=== PATIENT | female | born 1985 | race Caucasian/White ===

== ENCOUNTER 2017-07-26 22:46 | Observation (INO) ==
--- NOTE | 2017-07-26 23:23 | Emergency Department Note ---
Disposition Clinical Impression: Abdominal pain affecting , Non-viable Disposition: Admitted As Inpatient Condition: Good Time of Disposition: 02:25 HPI - General Chief complaint: ED Abdominal Pain Stated complaint: + Preg, Abdominal Pain Time Seen by Provider: 07/26/17 22:49 Source: patient Limitations: no limitations Nursing Notes Reviewed: Yes Vital Signs Reviewed: Yes - History of Present Illness HPI Narrative: Concern about status. 32yo at unknown gestational duration presents with abdominal pain. She mentioned she was seen in this department four days ago, had an inconclusive ultrasound, and had instructions to follow-up with her [employer] office for repeat blood work and possible repeat ultrasound. She is also given return precautions , and patient states that her abdominal pain had worsened today prompted her visit to the emergency department. She does mention she had contacted her OB/ NURSE COMPANION's office, who mentioned they did not have a technician preventative medicine, so they advised for patient to return to ED. Patient denies any headache, shortness of breath, chest pain, no syncopal symptoms, passing out, palpitations. - Related Data : 4 Para: 3 Ab: 0 Previous Rx's Medication Instructions Recorded Albuterol Sulfate [Albuterol 1 puff IH QID PRN #1 puff 08/19/16 Inhaler] Amoxicillin 875 mg PO BID #28 tablet 08/19/16 OxyCODONE/APAP 5/325 [Percocet 1 each PO Q6HR PRN #4 tablet 07/05/17 5/325 MG] HYDROcodone/Acet 5/325 mg [[place] 1 tab PO Q4H PRN #10 tab 07/17/17 5-325 mg] HYDROcodone/Acet 5/325 mg [[place] 1 tab PO Q6H PRN 2 Days #8 tab 07/22/17 5-325 mg] cephALEXin [Keflex] 500 mg PO QID 3 Days #12 capsule 07/22/17 Allergies Allergy/AdvReac Type Severity Reaction Status Date / Time No Known Allergies Allergy Verified 07/26/17 23:00 All systems ED: reviewed and negative except as stated. Review of Systems: As Per HPI Constitutional: Denies: fever, chills Eyes: Denies: vision change ENT ED: Denies: throat pain Cardiovascular: Denies: palpitations Respiratory: Denies: cough, dyspnea, wheezes Gastrointestinal: Reports: abdominal pain Genitourinary: Reports: as per HPI, abnormal menses. Denies: dysuria, frequency , hematuria, dyspareunia Musculoskeletal: Denies: back pain Integumentary: Denies: rash, abrasion Neurological: Denies: headache, weakness Psychiatric: Denies: depression Endocrine: Denies: fatigue Hematological/Lymphatic: Denies: easy bleeding Allergic/Immunologic: Denies: facial swelling PMH - Social History Smoking Status: Current every day smoker Alcohol use: Reports: none Drug use: Reports: none Physical Exam - General Limitations: no limitations General appearance: alert, in no apparent distress - Head Head exam: normocephalic - Eye Eye exam: Present: EOMI - ENT ENT exam: mucous membranes moist, TM's normal bilaterally - Neck Neck exam: Present: full ROM - Chest Chest inspection: Present: normal inspection, symmetric chest wall rise - Respiratory Respiratory exam: Present: normal lung sounds bilaterally. Absent: respiratory distress - Cardiovascular Cardiovascular exam: Present: regular rate, normal rhythm - Abdominal Exam Abdominal exam: Present: soft, Non-Tender - Extremities Exam Extremities exam: Present: normal inspection, full ROM, normal capillary refill - Back Exam Back exam: Present: full ROM - Neurological Exam Neurological exam: Present: alert - Psychiatric Psychiatric exam: Present: normal affect, anxious - Skin Skin exam: Present: warm, dry, intact, normal color. Absent: rash, cyanosis, diaphoresis Course Course Narrative: Patient presents with known history of positive , as well as worsening abdominal pain, vaginal bleeding. She describes vaginal bleeding has been persisting for weeks, however she just found out she was last week. She has not had a confirmed intrauterine . Her uterine ultrasound last week was inconclusive. She was discharged to home with return precautions and rec'd to f/u with OBGYN this week. Tonight, patient returns with worsening symptoms. She has discussed with her OBs office earlier today who advised her ED visit. she was unable to f/u earlier in the week in their office because of her work schedule. Patient mentions h/o of chronic vaginal bleeding even before recent dx of prenancy. Because of this she is unsure of when her LMP started. She mentions h/o of demised twin with one of her pregnancies. Plan now is For repeat hCG Quant, and uterine ultrasound. - Reevaluation(s) Reevaluation #1: I was contacted by radiologist Dr. Woodson, who had interpreted patient's ultrasound, and mentions findings concerning for ectopic due to a new soft tissue structure on the right ovary. He does mention since this was not there 5 days ago, it seems unlikely to be ectopic, however ectopic cannot be ruled out. We will plan for OB consult. Time: 00:45 Reevaluation #2: Patient is requesting to go outside to smoke. She is wanting to pull out her IV to walk outside to smoke. She appears anxious because of this. She is requesting nicotine patch as an alternative. Time: 03:39 - Consultations Consultation #1: call center dispatcher OB service was paged and I discussed patient and us findings with family practice physician Dr. Mcmullen who is covering, who stated she will contact OB and call us back. Time: 01:30 Consultation #2: Patient was again discussed with Dr. Mcmullen, who had discussed patient with OB Dr. Espinoza. They mentioned they would like to admit patient to their service for nonviable . Plan will be for lab work, and methotrexate. However they have advised to have patient be nothing by mouth in case surgery is warranted. This was discussed with patient who is in agreement. Pt stable at this time. Time: 02:23 Vital Signs Temperature 98.7 F 07/26/17 22:56 Pulse Rate 92 07/26/17 22:56 Respiratory Rate 20 07/26/17 22:56 Blood Pressure 146/91 07/26/17 22:56 O2 Sat by Pulse Oximetry 99 07/26/17 22:56 Temperature 98.7 F 07/26/17 22:56 Pulse Rate 85 07/27/17 01:46 Respiratory Rate 16 07/27/17 01:46 Blood Pressure 134/100 07/27/17 01:46 O2 Sat by Pulse Oximetry 98 07/27/17 01:46 Oxygen Delivery Oxygen Delivery Room Air OB/Uterine Contractions - MDM Narrative Medical decision making narrative: Obstetrics Ultrasound 07/26/17 23:13 IMPRESSION: 1. No sonographic evidence for intrauterine . 2. There is a new soft tissue structure without internal flow medial to the right ovary which could represent an ectopic . 3. Normal flow in both ovaries. Critical results were called by Dr. Alonzo Woodson MD to Alber Benito on 07/27/2017 at 00:34. D/ / Alonzo Woodson MD / Alonzo Woodson MD Interpreting Provider: Alonzo Woodson MD Laboratory Tests 07/26/17 07/26/17 07/26/17 23:09 23:09 23:09 WBC 11.6 H RBC 4.64 Hgb 13.2 Hct 40.2 MCV 86.6 MCH 28.4 MCHC 32.8 RDW 13.7 Plt Count 349 MPV 10.0 Immature Gran % 0.3 Seg Neutrophils % 54.1 Lymphocytes % 37.3 Monocytes % 7.1 Eosinophils % 1.0 Basophils % 0.2 Neutrophils # 6.3 Lymphocytes # 4.3 Monocytes # 0.8 Eosinophils # 0.1 Basophils # 0.0 Beta HCG, Quant 72 H Blood Type A POSITIVE Antibody Screen NEGATIVE - Medical Records Medical records reviewed: Yes I reviewed the patient's medical records. - Lab Data Lab results reviewed: Yes I reviewed the patient's lab results. Result diagrams: 07/26/17 23:09 Lab Results 07/26/17 07/26/17 07/26/17 Range/Units 23:09 23:09 23:09 WBC 11.6 H (4.3-11.1) K/mcL RBC 4.64 (3.82-4.97) M/mcL Hgb 13.2 (11.5-15.4) g/dL Hct 40.2 (35.3-44.9) % MCV 86.6 (83.0-100.0) fL MCH 28.4 (28.0-33.3) pg MCHC 32.8 (31.6-35.5) g/dL RDW 13.7 (11.5-14.5) % Plt Count 349 (140-400) K/mcL MPV 10.0 (9.4-12.4) fL Immature Gran % 0.3 (0-4) % Seg Neutrophils % 54.1 % Lymphocytes % 37.3 % Monocytes % 7.1 % Eosinophils % 1.0 % Basophils % 0.2 % Neutrophils # 6.3 (1.6-8.9) K/mcL Lymphocytes # 4.3 (0.6-4.6) K/mcL Monocytes # 0.8 (0.0-1.3) K/mcL Eosinophils # 0.1 (0.0-0.6) K/mcL Basophils # 0.0 (0.0-0.2) K/mcL Beta HCG, Quant 72 H (Less than 5) mIU/mL Blood Type A POSITIVE Antibody Screen NEGATIVE - Radiology Data Radiology results reviewed: Yes I reviewed the patient's radiology results.
[2017-07-27 02:54] LABS: Basophils % 0.2 %; Eosinophils # 0.1 K/mcL (0.0-0.6); Hematocrit 40.2 % (35.3-44.9); Hemoglobin 13.2 g/dL (11.5-15.4); Immature Granulocytes % 0.3 % (0-4); Lymphocytes # 4.3 K/mcL (0.6-4.6); Lymphocytes % 37.3 %; Mean Corpuscular HGB Conc 32.8 g/dL (31.6-35.5); Mean Corpuscular Hemoglobin 28.4 pg (28.0-33.3); Mean Corpuscular Volume 86.6 fL (83.0-100.0); Monocytes # 0.8 K/mcL (0.0-1.3); Monocytes % 7.1 %; Neutrophils # 6.3 K/mcL (1.6-8.9); Platelet Count 349 K/mcL (140-400); Red Blood Count 4.64 M/mcL (3.82-4.97); Red Cell Distribution Width 13.7 % (11.5-14.5); Segmented Neutrophils % 54.1 %
[2017-07-27] MEDS ORDERED: Nicotine 21 MG PATCH.TD24 TD ONE (03:32)
[2017-07-27] MEDS ORDERED: Acetaminophen 325 MG TABLET PO PRN (04:19)
--- NOTE | 2017-07-27 04:26 | OB/GYN History & Physical ---
Date of Encounter: 07/27/17 Time of Encounter: 04:22 Assessment and Plan (1) Ectopic Current visit: Yes Status: Acute Plan: - cbc, cmp, beta hcg, type and screen - if no contraindications plan to start methotrexate - labetalol 200mg given for elevated BP - Tylenol 650mg q6hr for pain - NPO until choice of treatment of ectopic preg - hemoglobin stable - plan to discharge later today if surgery is not needed Qualifiers: Location of ectopic : ovarian Intrauterine status: without intrauterine Laterality: right Qualified Code(s): O00.201 - Right ovarian without intrauterine (2) Non-viable Current visit: Yes Status: Acute (3) Vaginal bleeding affecting early Current visit: Yes Status: Acute hemoglobin stable (4) Tobacco dependence Current visit: Yes Status: Acute Nicotine patch 21mg given in ED History of Present Illness Chief complaint: abdominal pain HPI: Ms. Rios is a 32 year old female at an unknown gestational age as patient has been bleeding for a couple of weeks and is unsure of LMP presented to the ED with worsening abdominal pain. Patient was previously in the ED on 07/22/17 and was found to have a beta hCG of 440 and and was scheduled to see Dr. Bronson. Patient return to the ED today as abdominal pain worsen and bleeding continued. Bleeding has been going on for the past 2 weeks not heavier than a normal period. Pain currently 5/10. Patient currently having toothe pain but denies N/V, SOB, dizziness. Past Med Surg Social Fam HX - Past Medical History Medical history: no medical history Psychiatric history: no psych history - Past Surgical History Surgical History: - Social History Smoking Status: Current every day smoker Packs per day: 1 1/2 packs Smokeless Tobacco Status: No Alcohol use: none Drug use: none Obstetrical History - Pregnancies : 4 Para: 3 Medications and Allergies Albuterol Sulfate [Albuterol Inhaler] 1 puff IH QID PRN #1 puff 08/19/16 [Rx] Amoxicillin 875 mg PO BID #28 tablet 08/19/16 [Rx] OxyCODONE/APAP 5/325 [Percocet 5/325 MG] 1 each PO Q6HR PRN #4 tablet 07/05/17 [ Rx] HYDROcodone/Acet 5/325 mg [[place] 5-325 mg] 1 tab PO Q4H PRN #10 tab 07/17/17 [Rx ] HYDROcodone/Acet 5/325 mg [[place] 5-325 mg] 1 tab PO Q6H PRN 2 Days #8 tab [Rx] cephALEXin [Keflex] 500 mg PO QID 3 Days #12 capsule 07/22/17 [Rx] 3 Allergy/AdvReac Type Severity Reaction Status Date / Time No Known Allergies Allergy Verified 07/26/17 23:00 Exam - Vital Signs Vital signs: Initial Vital Signs Temp Pulse Resp BP Pulse Ox 98.7 F 92 20 146/91 99 07/26/17 22:56 07/26/17 22:56 07/26/17 22:56 07/26/17 22:56 07/26/17 22:56 - Constitutional Constitutional: well developed, well nourished, mild distress - HEENT HEENT: EOMI - Neck Neck exam: full ROM - Lungs Respiratory exam: wheezes (left side, intermittent ) - Cardiovascular Cardiovascular exam: RRR - Abdomen Abdomen: Present: bowel sounds normal. Absent: guarding noted Abdomen detail: right lower quadrant: tenderness - Extremities Extremities exam: full ROM Results Result Diagrams: 07/26/17 23:09 Abnormal lab results WBC 11.6 K/mcL (4.3-11.1) H 07/26/17 23:09 Beta HCG, Quant 72 mIU/mL (Less than 5) H 07/26/17 23:09 All other labs normal. - VTE Reasons for not Prescribing Prophylaxis: Treatment not Indicated - Low risk for VTE
[2017-07-27 05:30] LABS: Alanine Aminotransferase 9 Units/L (7-52); Albumin 3.7 g/dL (3.5-5.7); Albumin/Globulin Ratio 1.4 (1.1-2.2); Alkaline Phosphatase 89 Units/L (34-104); Aspartate Amino Transferase 10 Units/L (13-39); BUN/Creatinine Ratio 19 (6-26); Bilirubin,Total 0.3 mg/dL (0.3-1.0); Blood Urea Nitrogen 9 mg/dL (6-20); Calcium 8.9 mg/dL (8.6-10.3); Carbon Dioxide 31 mEq/L (23-29); Chloride 103 mEq/L (98-107); Globulin 2.7 g/dL (2.4-3.5); Glucose 111 mg/dL (70-105); Osmolality,Calculated 285 (280-300); Sodium 138 mEq/L (136-145); Total Protein 6.4 g/dL (6.4-8.9); eGFR For African Americans > 60 (> 60); eGFR For Non-African Americans > 60 (> 60)
--- NOTE | 2017-07-27 10:51 | Discharge Summary ---
Date of Encounter: 07/27/17 Time of Encounter: 10:51 - Discharge Diagnosis (1) Ectopic Priority: Primary Status: Acute Comments: Patient with minimal abdominal pain at this time. Well controlled with motrin and tylenol. Patient's Beta HCG decreasing. No sign of surgical abdomen at this time. We will plan to d/c the patient home with close follow up with her OBGYN. Patient agrees to this plan and would like to be discharged at this time. Qualifiers: Location of ectopic : ovarian Intrauterine status: without intrauterine Laterality: right Qualified Code(s): O00.201 - Right ovarian without intrauterine - Discharge Medications Home Medications: Albuterol Sulfate [Albuterol Inhaler] 1 puff IH QID PRN #1 puff 08/19/16 [Rx] Acetaminophen [Tylenol] 650 mg PO Q6HR PRN tablet 07/27/17 [Rx] Allergies/Adverse Reactions: 3 Allergy/AdvReac Type Severity Reaction Status Date / Time No Known Allergies Allergy Verified 07/26/17 23:00 Data Procedures and tests throughout hospitalization: Laboratory Tests 07/27/17 05:03 Sodium 138 Potassium 3.0 L Chloride 103 Carbon Dioxide 31 H BUN 9 Creatinine 0.47 L Est GFR ( Amer) > 60 Est GFR (Non-Af Amer) > 60 BUN/Creatinine Ratio 19 Glucose 111 H Calculated Osmolality 285 Calcium 8.9 Total Bilirubin 0.3 AST 10 L ALT 9 Alkaline Phosphatase 89 Serum Total Protein 6.4 Albumin 3.7 Globulin 2.7 Albumin/Globulin Ratio 1.4 Beta HCG, Quant 63 H Labs on day of discharge: Labs from last 24 hours 07/27/17 05:03 Sodium 138 Potassium 3.0 L Chloride 103 Carbon Dioxide 31 H BUN 9 Creatinine 0.47 L Est GFR ( Amer) > 60 Est GFR (Non-Af Amer) > 60 BUN/Creatinine Ratio 19 Glucose 111 H Calculated Osmolality 285 Calcium 8.9 Total Bilirubin 0.3 AST 10 L ALT 9 Alkaline Phosphatase 89 Serum Total Protein 6.4 Albumin 3.7 Globulin 2.7 Albumin/Globulin Ratio 1.4 Beta HCG, Quant 63 H Date of admission: 07/27/17 02:51 Primary care physician: PCP NONE Discharging clinician: Shaniqua Jasso Anticipated date of discharge: 07/27/17 - Patient Status Disposition: Home, Self-Care Condition: Good Functional capacity at discharge: independent ambulation Overall status at discharge: patient is progressing back to baseline - Discharge Instructions Instructions: Ectopic (DC) Follow Up With: Ezequiel Bronson MD [Non-Partnered Physician] - (Please call OBGYN to schedule follow-up appointment) - Diet and Activity Activity: increase activity as tolerated Diet: advance to your usual diet Hospital Course [employer] Hospital course: Ms. Rios is a 32 year old female at an unknown gestational age as patient has been bleeding for a couple of weeks and is unsure of LMP presented to the ED with worsening abdominal pain. Patient was previously in the ED on 07/22/17 and was found to have a beta hCG of 440 and and was scheduled to see Dr. Bronson. Patient return to the ED today as abdominal pain worsen and bleeding continued. Bleeding has been going on for the past 2 weeks not heavier than a normal period. Pain currently 5/10. Patient currently having toothe pain but denies N/V, SOB, dizziness. Ultrasound completed and showed 1. No sonographic evidence for intrauterine . 2. There is a new soft tissue structure without internal flow medial to the right ovary which could represent an ectopic . 3. Normal flow in both ovaries. Patient was admitted for observation. Patient's beta HCG has decreased to 63 this morning. Time Attestation: Total time spent providing and/or coordinating discharge services: Exam - Constitutional Vitals: Temp Pulse Resp BP Pulse Ox 98.7 F 85 18 147/89 98 07/26/17 22:56 07/27/17 01:46 07/27/17 03:39 07/27/17 05:05 07/27/17 01:46 General appearance IM: A&O X 3, no acute distress - Respiratory Respiratory exam: Present: CTAB - Cardiovascular Cardiovascular exam IM: Present: RRR - GI/Abdominal GI/Abdominal exam IM: soft Additional comments: Mild tenderness to RLQ and suprapubic area, no rebound, guarding, or signs of a surgical abdomen. Abdomen is soft - Extremities Exam Extremities exam IM: Present: normal capillary refill, normal inspection - Neurological Exam Neurological exam: alert, oriented X3, no focal deficits - VTE Reasons for not Prescribing Prophylaxis: Treatment not Indicated - Low risk for VTE - Attending Attestation I have seen this patient in addition to the resident physician and I agree with the plan as outlined. Discharge home with strict return precautions. Pt to follow-up within the next few days with her primary OBGYN. POC discussed with Dr. Scruggs.
[2017-07-27 13:38] VITALS: BP 140/82
== END 2017-07-27 12:00 | disposition home or self-care (01) | DRG 566 ==
LOC: EMEROO 22:46 → 1NENUPED 07-27 02:51 → INTOOBSV 07-27 02:51 → 1NENUPED 07-27 03:41
PROVIDERS: ADMIT Advanced Practice Midwife; ATTEND Obstetrics & Gynecology

== ENCOUNTER 2020-05-10 14:17 | Inpatient (IN) ==
[2020-05-10] MEDS ORDERED: 0.9 % Sodium Chloride 1,000 ML IVC ONE ×2 (14:37→15:24)
[2020-05-10] MEDS ORDERED: Ondansetron 4 MG/2 ML VIAL IVP ONE (14:39)
[2020-05-10 15:09] LABS: Basophils % 0.2 %; Eosinophils # 0.1 K/mcL (0.0-0.6); Eosinophils % 0.6 %; Hematocrit 40.8 % (35.3-44.9); Hemoglobin 13.9 g/dL (11.5-15.4); Immature Granulocytes % 0.8 % (0-4); Lymphocytes # 4.4 K/mcL (0.6-4.6); Lymphocytes % 19.8 %; Mean Corpuscular HGB Conc 34.1 g/dL (31.6-35.5); Mean Corpuscular Hemoglobin 34.2 pg (28.0-33.3); Mean Corpuscular Volume 100.5 fL (83.0-100.0); Monocytes # 0.7 K/mcL (0.0-1.3); Monocytes % 3.2 %; Neutrophils # 16.6 K/mcL (1.6-8.9); Nucleated Red Blood Cells 0.1 /100 WBC (0); Platelet Count 442 K/mcL (140-400); Red Blood Count 4.06 M/mcL (3.82-4.97); Segmented Neutrophils % 75.4 %
[2020-05-10 15:26] LABS: Alanine Aminotransferase 16 Units/L (7-52); Albumin 3.3 g/dL (3.5-5.7); Alkaline Phosphatase 207 Units/L (34-104); Amylase 55 Units/L (29-103); Aspartate Amino Transferase 30 Units/L (13-39); BUN/Creatinine Ratio 22 (6-26); Bilirubin,Direct 0.3 mg/dL (0.0-0.2); Bilirubin,Indirect 0.6 mg/dL (0.0-1.0); Bilirubin,Total 0.9 mg/dL (0.3-1.0); Blood Urea Nitrogen 12 mg/dL (6-20); Calcium 9.1 mg/dL (8.6-10.3); Carbon Dioxide 26 mEq/L (23-29); Chloride 83 mEq/L (98-107); Globulin 3.4 g/dL (2.4-3.5); Glucose 139 mg/dL (70-105); Lipase 8 Units/L (11-82); Osmolality,Calculated 266 (280-300); Potassium 2.7 mEq/L (3.5-5.1); Sodium 127 mEq/L (136-145); Total Protein 6.7 g/dL (6.4-8.9); Troponin I < 0.03 ng/mL (< 0.04); eGFR For African Americans > 60 (> 60); eGFR For Non-African Americans > 60 (> 60)
[2020-05-10 15:48] LABS: Hypochromasia Present (Not Present); Stomatocytes 1+ (Not Present)
[2020-05-10 15:50] LABS: Adenovirus Not Detected (Not Detect); Bordetella Pertussis Not Detected (Not Detect); Chlamydophila pneumoniae Not Detected (Not Detect); Coronavirus 229E Not Detected (Not Detect); Coronavirus HKU1 Not Detected (Not Detect); Coronavirus NL63 Not Detected (Not Detect); Coronavirus OC43 Not Detected (Not Detect); Human Metapneumovirus Not Detected (Not Detect); Human Rhinovirus/Enterovirus Not Detected (Not Detect); Influenza A Subtype 2009 H1 Not Detected (Not Detect); Influenza B Not Detected (Not Detect); Mycoplasma pneumoniae Not Detected (Not Detect); Parainfluenza Virus 1 Not Detected (Not Detect); Parainfluenza Virus 2 Not Detected (Not Detect); Parainfluenza Virus 3 Not Detected (Not Detect); Parainfluenza Virus 4 Not Detected (Not Detect); Respiratory Syncytial Virus Not Detected (Not Detect); SARS-CoV-2 Not Detected (Not Detect)
[2020-05-10] MEDS ORDERED: Isovue-370 500 ML BOTTLE IVP ONE (17:04)
[2020-05-10] MEDS ORDERED: Vancomycin 1,500 MG/265 ML IV.SOLN IVPB ONE (17:25)
[2020-05-10] MEDS ORDERED: Cefepime HCl 2,000 MG in 0.9 % Sodium Chloride Mini Bag 100 ML IVPB ONE (17:30)
[2020-05-10 19:08] LABS: Bacteria,Urine Few per hpf (None-Few); Bilirubin,Urine Negative (Negative); Blood,Urine Negative (Negative); Clarity,Urine Clear (Clear); Color,Urine Yellow (Yellow); Glucose,Urine (UA) Normal (Normal); Ketones,Urine Trace mg/dL (Negative); Leukocyte Esterase,Urine Moderate (Negative); Mucus,Urine Few per lpf (None-Few); Nitrite,Urine Negative (Negative); PH,Urine 6.5 pH Units (5.0-8.0); Protein,Urine 30 mg/dL (Neg-Trace); Specific Gravity,Urine > 1.030 (1.010-1.025); Squamous Epithelial Cell,Urine Few per hpf (None-Few)
[2020-05-10] MEDS ORDERED: Potassium Chloride 40 MEQ, Lidocaine 1% 2 ML in 0.9 % Sodium Chloride 500 ML IVPB ONE (19:16)
[2020-05-10] MEDS ORDERED: Naloxone 0.4 MG/ML INJ IVP PRN (21:12)
[2020-05-10] MEDS ORDERED: Acetaminophen 325 MG TABLET PO PRN (21:12)
[2020-05-10 21:58] LABS: Amphetamine Screen,Urine Negative ng/mL (Cutoff=1000); Barbiturate Screen,Urine Negative ng/mL (Cutoff=200); Benzodiazepines Screen,Urine Negative ng/mL (Cutoff=200); Cannabinoid Screen,Urine Negative ng/mL (Cutoff = 50); Cocaine Screen,Urine Negative ng/mL (Cutoff= 300); Opiate Screen,Urine Positive ng/mL (Cutoff=300); Phencyclidine Screen,Urine Negative ng/mL (Cutoff=25)
[2020-05-10] MEDS: 0.9 % Sodium Chloride 1,000 ML IVC SCH (22:11)
[2020-05-10 23:27] LABS: BUN/Creatinine Ratio 22 (6-26); Blood Urea Nitrogen 10 mg/dL (6-20); Calcium 7.9 mg/dL (8.6-10.3); Carbon Dioxide 23 mEq/L (23-29); Chloride 93 mEq/L (98-107); Glucose 115 mg/dL (70-105); Osmolality,Calculated 270 (280-300); Potassium 3.3 mEq/L (3.5-5.1); Sodium 130 mEq/L (136-145); eGFR For African Americans > 60 (> 60); eGFR For Non-African Americans > 60 (> 60)
[2020-05-11] MEDS: Vancomycin 1,250 MG/262.5 ML IV.SOLN IVPB SCH ×3 (05:39→21:12)
[2020-05-11] MEDS: *HR* Enoxaparin 40 MG/0.4 ML SYRINGE SQ SCH (05:39)
[2020-05-11] MEDS: Cefepime HCl 2,000 MG in Water for inj. (sterile) 20 ML IVP SCH ×3 (05:40→21:15)
[2020-05-11] MEDS: Ondansetron 4 MG/2 ML VIAL IVP PRN ×2 (05:46→17:16)
[2020-05-11 06:35] LABS: Basophils % 0.1 %; Eosinophils # 0.1 K/mcL (0.0-0.6); Eosinophils % 0.6 %; Hematocrit 38.3 % (35.3-44.9); Hemoglobin 12.7 g/dL (11.5-15.4); Immature Granulocytes % 0.5 % (0-4); Lymphocytes # 3.6 K/mcL (0.6-4.6); Lymphocytes % 17.8 %; Mean Corpuscular HGB Conc 33.2 g/dL (31.6-35.5); Mean Corpuscular Hemoglobin 33.9 pg (28.0-33.3); Mean Corpuscular Volume 102.1 fL (83.0-100.0); Mean Platelet Volume 9.8 fL (9.4-12.4); Monocytes # 0.7 K/mcL (0.0-1.3); Monocytes % 3.5 %; Neutrophils # 15.7 K/mcL (1.6-8.9); Platelet Count 422 K/mcL (140-400); Red Blood Count 3.75 M/mcL (3.82-4.97); Red Cell Distribution Width 15.1 % (11.5-14.5); Segmented Neutrophils % 77.5 %; White Blood Count 20.3 K/mcL (4.3-11.1)
[2020-05-11 06:54] LABS: BUN/Creatinine Ratio 20 (6-26); Blood Urea Nitrogen 9 mg/dL (6-20); Carbon Dioxide 27 mEq/L (23-29); Chloride 96 mEq/L (98-107); Glucose 120 mg/dL (70-105); Magnesium 1.6 mg/dL (1.6-2.6); Osmolality,Calculated 274 (280-300); Sodium 132 mEq/L (136-145); eGFR For African Americans > 60 (> 60); eGFR For Non-African Americans > 60 (> 60)
[2020-05-11] MEDS: 0.9 % Sodium Chloride 1,000 ML IVC SCH ×2 (10:39→20:26)
[2020-05-11] MEDS ORDERED: 0.9 % Sodium Chloride 1,000 ML IVC SCH (11:25)
[2020-05-11] MEDS ORDERED: 0.9 % Sodium Chloride 1,000 ML IV ONE (18:03)
[2020-05-12] MEDS: Magic Mouthwash 10 ML UD Cup PO SCH ×4 (02:31→17:17)
[2020-05-12] MEDS: 0.9 % Sodium Chloride 1,000 ML IVC SCH ×4 (04:14→23:40)
[2020-05-12 04:40] LABS: Basophils % 0.2 %; Eosinophils # 0.2 K/mcL (0.0-0.6); Eosinophils % 0.8 %; Hematocrit 34.7 % (35.3-44.9); Hemoglobin 11.5 g/dL (11.5-15.4); Immature Granulocytes % 0.6 % (0-4); Lymphocytes # 3.8 K/mcL (0.6-4.6); Lymphocytes % 19.1 %; Mean Corpuscular HGB Conc 33.1 g/dL (31.6-35.5); Mean Corpuscular Hemoglobin 34.6 pg (28.0-33.3); Mean Corpuscular Volume 104.5 fL (83.0-100.0); Mean Platelet Volume 9.6 fL (9.4-12.4); Monocytes # 0.6 K/mcL (0.0-1.3); Monocytes % 3.2 %; Platelet Count 383 K/mcL (140-400); Red Blood Count 3.32 M/mcL (3.82-4.97); Red Cell Distribution Width 15.3 % (11.5-14.5); Segmented Neutrophils % 76.1 %; White Blood Count 19.7 K/mcL (4.3-11.1)
[2020-05-12 04:59] LABS: Alanine Aminotransferase 13 Units/L (7-52); Albumin 2.8 g/dL (3.5-5.7); Alkaline Phosphatase 141 Units/L (34-104); Aspartate Amino Transferase 20 Units/L (13-39); BUN/Creatinine Ratio 18 (6-26); Bilirubin,Total 0.6 mg/dL (0.3-1.0); Blood Urea Nitrogen 7 mg/dL (6-20); Calcium 7.8 mg/dL (8.6-10.3); Carbon Dioxide 22 mEq/L (23-29); Chloride 102 mEq/L (98-107); Globulin 2.7 g/dL (2.4-3.5); Glucose 110 mg/dL (70-105); Magnesium 1.4 mg/dL (1.6-2.6); Osmolality,Calculated 279 (280-300); Phosphorous 1.8 mg/dL (2.7-4.5); Potassium 3.3 mEq/L (3.5-5.1); Sodium 135 mEq/L (136-145); Total Protein 5.5 g/dL (6.4-8.9); eGFR For African Americans > 60 (> 60); eGFR For Non-African Americans > 60 (> 60)
[2020-05-12] MEDS: *HR* Enoxaparin 40 MG/0.4 ML SYRINGE SQ SCH (05:47)
[2020-05-12] MEDS ORDERED: Magic Mouthwash 10 ML UD Cup PO SCH (07:30)
[2020-05-12] MEDS ORDERED: Potassium Phosphate 44 MEQ in 0.9 % Sodium Chloride 250 ML IVPB ONE (08:12)
[2020-05-12] MEDS ORDERED: Potassium Chloride 40 MEQ, Lidocaine 1% 2 ML in 0.9 % Sodium Chloride 500 ML IVPB ONE (08:12)
[2020-05-12] MEDS: Cefepime HCl 2,000 MG in Water for inj. (sterile) 20 ML IVP SCH ×2 (09:49→20:24)
[2020-05-12] MEDS: Vancomycin 1,250 MG/262.5 ML IV.SOLN IVPB SCH (10:15)
[2020-05-12] MEDS: Nystatin SUSP 5 ML UD.LIQ PO SCH (20:26)
[2020-05-13] MEDS: Ondansetron 4 MG/2 ML VIAL IVP PRN (01:43)
[2020-05-13 04:30] LABS: Basophils % 0.2 %; Eosinophils # 0.3 K/mcL (0.0-0.6); Eosinophils % 1.4 %; Hematocrit 33.7 % (35.3-44.9); Hemoglobin 10.8 g/dL (11.5-15.4); Immature Granulocytes % 0.5 % (0-4); Lymphocytes # 3.1 K/mcL (0.6-4.6); Lymphocytes % 16.7 %; Mean Corpuscular Hemoglobin 33.9 pg (28.0-33.3); Mean Corpuscular Volume 105.6 fL (83.0-100.0); Mean Platelet Volume 9.6 fL (9.4-12.4); Monocytes # 0.5 K/mcL (0.0-1.3); Monocytes % 2.7 %; Neutrophils # 14.6 K/mcL (1.6-8.9); Platelet Count 362 K/mcL (140-400); Red Blood Count 3.19 M/mcL (3.82-4.97); Red Cell Distribution Width 15.4 % (11.5-14.5); Segmented Neutrophils % 78.5 %; White Blood Count 18.6 K/mcL (4.3-11.1)
[2020-05-13 04:50] LABS: Alanine Aminotransferase 14 Units/L (7-52); Albumin 2.7 g/dL (3.5-5.7); Alkaline Phosphatase 129 Units/L (34-104); Aspartate Amino Transferase 19 Units/L (13-39); BUN/Creatinine Ratio 15 (6-26); Bilirubin,Total 0.5 mg/dL (0.3-1.0); Blood Urea Nitrogen 5 mg/dL (6-20); Calcium 7.7 mg/dL (8.6-10.3); Carbon Dioxide 21 mEq/L (23-29); Chloride 105 mEq/L (98-107); Globulin 2.7 g/dL (2.4-3.5); Glucose 110 mg/dL (70-105); Magnesium 1.6 mg/dL (1.6-2.6); Osmolality,Calculated 276 (280-300); Phosphorous 2.4 mg/dL (2.7-4.5); Potassium 3.9 mEq/L (3.5-5.1); Sodium 134 mEq/L (136-145); Total Protein 5.4 g/dL (6.4-8.9); eGFR For African Americans > 60 (> 60); eGFR For Non-African Americans > 60 (> 60)
[2020-05-13] MEDS: 0.9 % Sodium Chloride 1,000 ML IVC SCH ×3 (05:10→22:06)
[2020-05-13] MEDS: *HR* Enoxaparin 40 MG/0.4 ML SYRINGE SQ SCH (05:10)
[2020-05-13] MEDS: Cefepime HCl 2,000 MG in Water for inj. (sterile) 20 ML IVP SCH ×2 (07:57→20:05)
[2020-05-13] MEDS: Magic Mouthwash 10 ML UD Cup PO SCH ×3 (07:58→16:30)
[2020-05-13] MEDS: Nystatin SUSP 5 ML UD.LIQ PO SCH ×4 (09:11→20:05)
[2020-05-13] MEDS: Doxycycline 100 MG CAPSULE PO SCH ×2 (09:11→20:05)
[2020-05-13] MEDS: Albumin 25% 25gram/100mL 25 GM/100 ML IV.SOLN IVPB SCH ×2 (09:42→16:30)
[2020-05-13 16:50] LABS: Red Blood Cell,CSF < 2000 RBC/mcL
[2020-05-13 17:19] LABS: Glucose,CSF 68 mg/dL (40-70)
[2020-05-13 17:21] LABS: Total Protein,CSF 39 mg/dL (15-45)
[2020-05-13] MEDS: Nicotine 14 MG PATCH.TD24 TD SCH (17:26)
[2020-05-13 18:03] LABS: Appearance,CSF Clear (Clear)
[2020-05-13 18:39] LABS: Thyroid Stimulating Hormone 3.093 mcIU/mL (0.340-5.600)
[2020-05-13 19:15] LABS: Folate < 1.0 ng/mL (3.0-16.0); Vitamin B12 247 pg/mL (250-1100)
[2020-05-13] MEDS ORDERED: Folic Acid 1 MG in 0.9 % Sodium Chloride 50 ML IVPB ONE (20:16)
[2020-05-13] MEDS ORDERED: Folic Acid 1 MG TABLET PO SCH (21:00)
[2020-05-13] MEDS ORDERED: Cyanocobalamin (B-12) 1,000 MCG TABLET PO SCH (21:00)
[2020-05-13] MEDS: Cyanocobalamin (B-12) 1,000 MCG/ML VIAL IM SCH (21:59)
[2020-05-14] MEDS: Albumin 25% 25gram/100mL 25 GM/100 ML IV.SOLN IVPB SCH (00:58)
[2020-05-14] MEDS: 0.9 % Sodium Chloride 1,000 ML IVC SCH (03:20)
[2020-05-14] MEDS: *HR* Enoxaparin 40 MG/0.4 ML SYRINGE SQ SCH (05:32)
[2020-05-14] MEDS ORDERED: Folic Acid 1 MG in 0.9 % Sodium Chloride 50 ML IVPB STA (07:06)
[2020-05-14 07:24] VITALS: BP 138/93
[2020-05-14] MEDS: Doxycycline 100 MG CAPSULE PO SCH (07:59)
[2020-05-14] MEDS: Cefepime HCl 2,000 MG in Water for inj. (sterile) 20 ML IVP SCH (08:00)
[2020-05-14] MEDS: Cyanocobalamin (B-12) 1,000 MCG/ML VIAL IM SCH (08:00)
[2020-05-14] MEDS: Magic Mouthwash 10 ML UD Cup PO SCH ×2 (08:00→11:38)
[2020-05-14] MEDS: Nicotine 14 MG PATCH.TD24 TD SCH (08:01)
[2020-05-14] MEDS: Nystatin SUSP 5 ML UD.LIQ PO SCH ×2 (08:01→12:59)
[2020-05-14] MEDS ORDERED: Furosemide 40 MG/4 ML VIAL IVP ONE (08:14)
[2020-05-14 10:41] LABS: Alanine Aminotransferase 14 Units/L (7-52); Albumin 3.6 g/dL (3.5-5.7); Albumin/Globulin Ratio 1.4 (1.1-2.2); Alkaline Phosphatase 113 Units/L (34-104); Aspartate Amino Transferase 27 Units/L (13-39); BUN/Creatinine Ratio 14 (6-26); Bilirubin,Total 0.8 mg/dL (0.3-1.0); Blood Urea Nitrogen 5 mg/dL (6-20); Calcium 8.7 mg/dL (8.6-10.3); Carbon Dioxide 19 mEq/L (23-29); Chloride 103 mEq/L (98-107); Globulin 2.5 g/dL (2.4-3.5); Glucose 102 mg/dL (70-105); Osmolality,Calculated 273 (280-300); Potassium 4.6 mEq/L (3.5-5.1); Sodium 133 mEq/L (136-145); Total Protein 6.1 g/dL (6.4-8.9); eGFR For African Americans > 60 (> 60); eGFR For Non-African Americans > 60 (> 60)
== END 2020-05-14 13:04 | disposition home or self-care (01) | DRG 720 ==
LOC: EMEROOARM 14:17 → 3ANU 14:17 → SUATTDRO 05-11 18:37 → 3ANU 05-13 16:40
PROVIDERS: ADMIT Student in an Organized Health Care Education/Training Program; ATTEND Internal Medicine

== ENCOUNTER 2020-05-19 22:56 | Inpatient (IN) ==
[2020-05-19 23:44] LABS: Basophils % 0.3 %; Eosinophils # 0.1 K/mcL (0.0-0.6); Eosinophils % 0.9 %; Hematocrit 35.3 % (35.3-44.9); Hemoglobin 11.4 g/dL (11.5-15.4); Immature Granulocytes % 0.6 % (0-4); Lymphocytes # 4.3 K/mcL (0.6-4.6); Lymphocytes % 28.6 %; Mean Corpuscular HGB Conc 32.3 g/dL (31.6-35.5); Mean Corpuscular Hemoglobin 33.9 pg (28.0-33.3); Mean Corpuscular Volume 105.1 fL (83.0-100.0); Mean Platelet Volume 9.7 fL (9.4-12.4); Monocytes % 6.4 %; Neutrophils # 9.4 K/mcL (1.6-8.9); Platelet Count 608 K/mcL (140-400); Red Blood Count 3.36 M/mcL (3.82-4.97); Red Cell Distribution Width 15.1 % (11.5-14.5); Segmented Neutrophils % 63.2 %; White Blood Count 14.9 K/mcL (4.3-11.1)
[2020-05-20 00:03] LABS: Alanine Aminotransferase 30 Units/L (7-52); Albumin 3.3 g/dL (3.5-5.7); Alkaline Phosphatase 218 Units/L (34-104); Aspartate Amino Transferase 70 Units/L (13-39); BUN/Creatinine Ratio 24 (6-26); Bilirubin,Direct 0.2 mg/dL (0.0-0.2); Bilirubin,Indirect 0.5 mg/dL (0.0-1.0); Bilirubin,Total 0.7 mg/dL (0.3-1.0); Blood Urea Nitrogen 10 mg/dL (6-20); Calcium 8.8 mg/dL (8.6-10.3); Carbon Dioxide 26 mEq/L (23-29); Chloride 97 mEq/L (98-107); Creatine Kinase 22 Units/L (30-223); Globulin 3.3 g/dL (2.4-3.5); Glucose 136 mg/dL (70-105); Lipase 6 Units/L (11-82); Osmolality,Calculated 287 (280-300); Potassium 2.6 mEq/L (3.5-5.1); Sodium 138 mEq/L (136-145); Total Protein 6.6 g/dL (6.4-8.9); eGFR For African Americans > 60 (> 60); eGFR For Non-African Americans > 60 (> 60)
[2020-05-20 00:04] LABS: Troponin I < 0.03 ng/mL (< 0.04)
[2020-05-20 00:05] LABS: Platelet Estimate Increased (Normal); Polychromasia 1+ (Not Present); Reactive Lymphocytes Present (Not Present)
[2020-05-20 00:08] LABS: Bilirubin,Urine Small (Negative); Blood,Urine Negative (Negative); Clarity,Urine Turbid (Clear); Color,Urine Dark-Yellow (Yellow); Glucose,Urine (UA) Normal (Normal); Hyaline Casts,Urine Many per lpf (None Seen); Ketones,Urine Trace mg/dL (Negative); Leukocyte Esterase,Urine Negative (Negative); Mucus,Urine Many per lpf (None-Few); Nitrite,Urine Negative (Negative); Protein,Urine 100 mg/dL (Neg-Trace); Specific Gravity,Urine > 1.030 (1.010-1.025); Squamous Epithelial Cell,Urine Few per hpf (None-Few)
[2020-05-20 00:29] LABS: Amphetamine Screen,Urine Negative ng/mL (Cutoff=1000); Barbiturate Screen,Urine Negative ng/mL (Cutoff=200); Benzodiazepines Screen,Urine Negative ng/mL (Cutoff=200); Cannabinoid Screen,Urine Negative ng/mL (Cutoff = 50); Cocaine Screen,Urine Negative ng/mL (Cutoff= 300); Opiate Screen,Urine Positive ng/mL (Cutoff=300); Phencyclidine Screen,Urine Negative ng/mL (Cutoff=25)
[2020-05-20 00:50] LABS: Adenovirus Not Detected (Not Detect); Bordetella Pertussis Not Detected (Not Detect); Chlamydophila pneumoniae Not Detected (Not Detect); Coronavirus 229E Not Detected (Not Detect); Coronavirus HKU1 Not Detected (Not Detect); Coronavirus NL63 Not Detected (Not Detect); Coronavirus OC43 Not Detected (Not Detect); Human Metapneumovirus Not Detected (Not Detect); Human Rhinovirus/Enterovirus Not Detected (Not Detect); Influenza A Subtype 2009 H1 Not Detected (Not Detect); Influenza B Not Detected (Not Detect); Mycoplasma pneumoniae Not Detected (Not Detect); Parainfluenza Virus 1 Not Detected (Not Detect); Parainfluenza Virus 2 Not Detected (Not Detect); Parainfluenza Virus 3 Not Detected (Not Detect); Parainfluenza Virus 4 Not Detected (Not Detect); Respiratory Syncytial Virus Not Detected (Not Detect); SARS-CoV-2 Not Detected (Not Detect)
[2020-05-20] MEDS ORDERED: POTASSIUM CHLORIDE IN 0.9%NACL 40 MEQ/1,000 ML IV.SOLN IV STA (01:02)
[2020-05-20] MEDS ORDERED: Azithromycin 500 MG in 0.9 % Sodium Chloride 250 ML IVPB ONE (01:28)
[2020-05-20] MEDS ORDERED: Piperacillin/Tazobactam 3.375 GM in 0.9 % Sodium Chloride Mini Bag 100 ML IVPB ONE (01:28)
[2020-05-20] MEDS ORDERED: Vancomycin 1,500 MG/265 ML IV.SOLN IVPB ONE (01:45)
[2020-05-20] MEDS ORDERED: Naloxone 0.4 MG/ML INJ IVP PRN (03:13)
[2020-05-20] MEDS ORDERED: Ringers Solution, Lactated 1,000 ML IVC SCH (03:15)
[2020-05-20 03:51] LABS: Hemoglobin 10.2 g/dL (11.5-15.4); Mean Corpuscular HGB Conc 32.9 g/dL (31.6-35.5); Mean Corpuscular Hemoglobin 34.5 pg (28.0-33.3); Mean Corpuscular Volume 104.7 fL (83.0-100.0); Mean Platelet Volume 9.6 fL (9.4-12.4); Platelet Count 575 K/mcL (140-400); Red Blood Count 2.96 M/mcL (3.82-4.97); Red Cell Distribution Width 15.1 % (11.5-14.5); White Blood Count 15.4 K/mcL (4.3-11.1)
[2020-05-20 04:08] LABS: BUN/Creatinine Ratio 29 (6-26); Blood Urea Nitrogen 11 mg/dL (6-20); Calcium 8.6 mg/dL (8.6-10.3); Carbon Dioxide 29 mEq/L (23-29); Chloride 98 mEq/L (98-107); Glucose 110 mg/dL (70-105); Osmolality,Calculated 288 (280-300); Potassium 2.8 mEq/L (3.5-5.1); Sodium 139 mEq/L (136-145); eGFR For African Americans > 60 (> 60); eGFR For Non-African Americans > 60 (> 60)
[2020-05-20 04:14] LABS: Procalcitonin 0.15 ng/mL (0.00-0.15)
[2020-05-20] MEDS ORDERED: Potassium Chloride Elixir 20 MEQ/15 ML UDC PO ONE ×2 (06:00→17:50)
[2020-05-20 07:19] LABS: Folate 8.1 ng/mL (3.0-16.0)
[2020-05-20] MEDS: Cyanocobalamin (B-12) 1,000 MCG TABLET PO SCH (07:55)
[2020-05-20] MEDS ORDERED: Gadolinium Contrast Agent (WT Based) IV PRN (08:49)
[2020-05-20] MEDS: Piperacillin/Tazobactam 3.375 GM in 0.9 % Sodium Chloride Mini Bag 100 ML IVPB SCH ×2 (11:15→15:35)
[2020-05-20] MEDS ORDERED: Furosemide 40 MG/4 ML VIAL IVP ONE (12:35)
[2020-05-20] MEDS ORDERED: Albumin 25% 25gram/100mL 25 GM/100 ML IV.SOLN IVPB ONE (12:35)
[2020-05-20 15:50] LABS: BUN/Creatinine Ratio 21 (6-26); Blood Urea Nitrogen 9 mg/dL (6-20); Calcium 8.7 mg/dL (8.6-10.3); Carbon Dioxide 28 mEq/L (23-29); Chloride 101 mEq/L (98-107); Glucose 112 mg/dL (70-105); Magnesium 1.4 mg/dL (1.6-2.6); Osmolality,Calculated 289 (280-300); Potassium 3.2 mEq/L (3.5-5.1); Sodium 140 mEq/L (136-145); eGFR For African Americans > 60 (> 60); eGFR For Non-African Americans > 60 (> 60)
[2020-05-20] MEDS: 0.9 % Sodium Chloride 1,000 ML IVC SCH ×2 (18:04→21:27)
[2020-05-20] MEDS ORDERED: 0.9 % Sodium Chloride 1,000 ML IVC ONE (18:08)
[2020-05-20] MEDS: Folic Acid 1 MG TABLET PO SCH (19:41)
[2020-05-21] MEDS: Piperacillin/Tazobactam 3.375 GM in 0.9 % Sodium Chloride Mini Bag 100 ML IVPB SCH ×3 (00:19→17:18)
[2020-05-21 02:45] LABS: Basophils % 0.3 %; Eosinophils # 0.1 K/mcL (0.0-0.6); Eosinophils % 0.8 %; Hematocrit 30.1 % (35.3-44.9); Hemoglobin 9.8 g/dL (11.5-15.4); Immature Granulocytes % 0.4 % (0-4); Lymphocytes # 3.4 K/mcL (0.6-4.6); Lymphocytes % 28.9 %; Mean Corpuscular HGB Conc 32.6 g/dL (31.6-35.5); Mean Corpuscular Hemoglobin 34.5 pg (28.0-33.3); Mean Platelet Volume 9.7 fL (9.4-12.4); Monocytes # 0.8 K/mcL (0.0-1.3); Monocytes % 6.9 %; Neutrophils # 7.3 K/mcL (1.6-8.9); Platelet Count 605 K/mcL (140-400); Red Blood Count 2.84 M/mcL (3.82-4.97); Red Cell Distribution Width 14.7 % (11.5-14.5); Segmented Neutrophils % 62.7 %; White Blood Count 11.7 K/mcL (4.3-11.1)
[2020-05-21 03:02] LABS: BUN/Creatinine Ratio 18 (6-26); Blood Urea Nitrogen 7 mg/dL (6-20); Calcium 8.2 mg/dL (8.6-10.3); Carbon Dioxide 27 mEq/L (23-29); Chloride 102 mEq/L (98-107); Glucose 92 mg/dL (70-105); Magnesium 1.7 mg/dL (1.6-2.6); Osmolality,Calculated 288 (280-300); Phosphorous 3.3 mg/dL (2.7-4.5); Potassium 3.1 mEq/L (3.5-5.1); Sodium 140 mEq/L (136-145); eGFR For African Americans > 60 (> 60); eGFR For Non-African Americans > 60 (> 60)
[2020-05-21] MEDS: 0.9 % Sodium Chloride 1,000 ML IVC SCH (05:32)
[2020-05-21] MEDS ORDERED: Potassium Chloride Elixir 20 MEQ/15 ML UDC PO ONE (09:33)
[2020-05-21] MEDS: Cyanocobalamin (B-12) 1,000 MCG TABLET PO SCH (09:42)
[2020-05-21] MEDS: Thiamine (B-1) 100 MG TABLET PO SCH (09:56)
[2020-05-21] MEDS ORDERED: 0.9 % Sodium Chloride 500 ML IVC ONE (12:37)
[2020-05-21] MEDS: Doxycycline 100 MG in 0.9 % Sodium Chloride Mini Bag 100 ML IVPB SCH (12:58)
[2020-05-21 18:07] LABS: Albumin 3.3 g/dL (3.5-5.7); Albumin/Globulin Ratio 1.2 (1.1-2.2); Bilirubin,Direct 0.2 mg/dL (0.0-0.2); Bilirubin,Indirect 0.4 mg/dL (0.0-1.0); Bilirubin,Total 0.6 mg/dL (0.3-1.0); Globulin 2.7 g/dL (2.4-3.5)
[2020-05-21] MEDS: Folic Acid 1 MG TABLET PO SCH (19:41)
[2020-05-21] MEDS: MetroNIDAZOLE 500 MG/100 ML 500 MG/100 ML BAG IVPB SCH (19:41)
[2020-05-21] MEDS: Lactobacillus 1 EACH CAP.SPRINK PO SCH (19:41)
[2020-05-21] MEDS: Magic Mouthwash 10 ML UD Cup PO SCH (22:49)
[2020-05-22] MEDS: Piperacillin/Tazobactam 3.375 GM in 0.9 % Sodium Chloride Mini Bag 100 ML IVPB SCH ×2 (00:25→11:50)
[2020-05-22] MEDS: MetroNIDAZOLE 500 MG/100 ML 500 MG/100 ML BAG IVPB SCH ×3 (00:26→16:25)
[2020-05-22] MEDS: Doxycycline 100 MG in 0.9 % Sodium Chloride Mini Bag 100 ML IVPB SCH ×2 (02:24→13:20)
[2020-05-22 07:06] LABS: BUN/Creatinine Ratio 17 (6-26); Blood Urea Nitrogen 8 mg/dL (6-20); Calcium 8.5 mg/dL (8.6-10.3); Carbon Dioxide 23 mEq/L (23-29); Chloride 104 mEq/L (98-107); Glucose 80 mg/dL (70-105); Magnesium 1.6 mg/dL (1.6-2.6); Osmolality,Calculated 285 (280-300); Potassium 3.6 mEq/L (3.5-5.1); Sodium 139 mEq/L (136-145); eGFR For African Americans > 60 (> 60); eGFR For Non-African Americans > 60 (> 60)
[2020-05-22] MEDS: 0.9 % Sodium Chloride 1,000 ML IVC SCH ×2 (07:24→12:57)
[2020-05-22] MEDS: Lactobacillus 1 EACH CAP.SPRINK PO SCH (07:40)
[2020-05-22] MEDS: Thiamine (B-1) 100 MG TABLET PO SCH (07:40)
[2020-05-22] MEDS: Magic Mouthwash 10 ML UD Cup PO SCH ×2 (07:41→13:20)
[2020-05-22] MEDS: Cyanocobalamin (B-12) 1,000 MCG TABLET PO SCH (07:41)
[2020-05-22 10:18] LABS: Basophils # 0.1 K/mcL (0.0-0.2); Basophils % 0.3 %; Eosinophils # 0.3 K/mcL (0.0-0.6); Eosinophils % 1.5 %; Hematocrit 34.8 % (35.3-44.9); Hemoglobin 11.1 g/dL (11.5-15.4); Immature Granulocytes % 0.5 % (0-4); Lymphocytes # 4.1 K/mcL (0.6-4.6); Lymphocytes % 23.9 %; Mean Corpuscular HGB Conc 31.9 g/dL (31.6-35.5); Mean Corpuscular Hemoglobin 33.3 pg (28.0-33.3); Mean Corpuscular Volume 104.5 fL (83.0-100.0); Mean Platelet Volume 9.6 fL (9.4-12.4); Monocytes % 5.6 %; Neutrophils # 11.7 K/mcL (1.6-8.9); Platelet Count 708 K/mcL (140-400); Red Blood Count 3.33 M/mcL (3.82-4.97); Red Cell Distribution Width 14.5 % (11.5-14.5); Segmented Neutrophils % 68.2 %; White Blood Count 17.1 K/mcL (4.3-11.1)
[2020-05-22 11:16] LABS: Anisocytosis 1+ (Not Present); Platelet Estimate Marked Increase (Normal)
[2020-05-22 11:17] LABS: Macrocytosis Present (Not Present)
[2020-05-22] MEDS ORDERED: *HR* Metoprolol 5 MG/5 ML VIAL IVP ONE (12:12)
[2020-05-22 15:37] VITALS: BP 143/88
[2020-05-22] MEDS ORDERED: Piperacillin/Tazobactam 3.375 GM in 0.9 % Sodium Chloride Mini Bag 100 ML IVPB SCH (20:00)
== END 2020-05-22 17:12 | disposition other institution (70) | DRG 720 ==
LOC: 3BNU 22:56 → EMEROOARM 22:56 → SUATTDRO 05-20 02:13 → 3BNU 05-20 02:33
PROVIDERS: ADMIT Student in an Organized Health Care Education/Training Program; ATTEND Internal Medicine